=== PATIENT | female | born 1975 | race Caucasian/White ===

== ENCOUNTER 2017-01-13 15:20 | Emergency (ER) | payer OTHER ==
[~2017-01-13 15:20] MED LIST: BENADRYL25 MG PO; CEPACOL SORE T1 EAC1 PO; DEPAKOTE500 MG PO; DESYREL-DPS50 MG PO; FEOSOL325 MG PO; HYDROCODON-ACE1 EAC4 PO; KEPPRA250 MG PO; KLONOPIN0.5 MG PO; LEVAQUIN750 MG PO; MAG-OX400 MG PO; NAPROSYN500 MG PO; TESSALON PERLE100 MG PO; TYLENOL325 MG PO; XANAX DPS1 MG PO; ZANAFLEX4 M2 PO; ZOLOFT100 MG PO; [UNRECOGNIZED DRUG - OTHER] PO
--- NOTE | 2017-01-20 21:28 | ER ---
ADMIT: 01/13/2017 RM/LOC: ER [facility] MR#: [id number] [address] [facility] [address] [place], [place] [id number] EDILBERTO MUÑOZ [address] [place] [address] Emergency Room Report SEX: F AGE: 41 : 1975 DATE: 01/13/2017 ADDENDUM: See T-sheet for complete H and P. A 41-year-old female who comes in complaining that she bumped into a towel rack in her bathroom that had a vase on it that fell off, hit her in the head and the back, and she states that she has had increasing pain in her head since then and has had back pain. She states that she developed some nausea afterwards and was sitting next to her toilet throwing up, when she became lightheaded and fell sideways, hitting her head against her shower. She is in here complaining of headache and back pain now. She states she has some possible seizure history, but her description does not sound consistent with real seizures. Physical exam shows she is in no distress. Her neurologic exam is unremarkable. I do see some slight abrasions on her forehead and slight abrasion on the occiput on the right side of her head. There is nothing that needs closure and they are quite superficial. I did end up getting a CT of her head, which is unremarkable. The patient states she was in quite a bit of pain, so I gave her Toradol 30 mg p.o. and Flexeril. She will be discharged home on Flexeril. DIAGNOSES: 1. Head contusion. 2. Back contusion. 3. Nausea and vomit. Spencer Bowser MD/ mary JOB #: [id number] CC: Spencer Bowser MD, Attending Physician Thiago Marquez MD, Family Physician
== END 2017-01-13 16:52 | disposition home or self-care (01) ==
LOC: ER 15:20
DX: S00.93XA Contusion of unspecified part of head, initial encounter (principal); S30.0XXA Contusion of lower back and pelvis, initial encounter; W20.8XXA Other cause of strike by thrown, projected or falling object, initial encounter; R11.2 Nausea with vomiting, unspecified; Z88.0 Allergy status to penicillin; Z90.710 Acquired absence of both cervix and uterus; Y92.002 Bathroom of unspecified non-institutional (private) residence as the place of occurrence of the external cause

== ENCOUNTER 2017-01-14 10:43 | Emergency (ER) | payer OTHER ==
--- NOTE | 2017-01-20 21:28 | ER ---
ADMIT: 01/14/2017 RM/LOC: ER [facility] MR#: [id number] [address] [facility] [address] [place] [id number] EDILBERTO MUÑOZ [address] [place] [address] Emergency Room Report SEX: F AGE: 41 : 1975 DATE: 01/14/2017 ADDENDUM: CHIEF COMPLAINT: Headache. HISTORY OF PRESENT ILLNESS: This is a 41-year-old female, who was seen by Dr. Bowser actually yesterday. She has putting it sounds like some white towels away. There was a base on top that is about 20 pounds, it got loose, it fell onto her head. She says she has some nausea and vomiting afterwards, then she passed out on the bathroom later on that afternoon, so then she decided to come into the ER. Dr. Bowser did do a CAT scan of her head at that time that was negative for any acute findings. The reason she comes back here today is because she is a social media marketing manager, she was trying to work this morning and just was very confused, had a headache, still have some nausea and vomiting. COURSE IN THE EMERGENCY ROOM: I gave her a liter of fluids here, Zofran, Toradol, and Valium; Zofran for the nausea, Toradol for the headache, and Valium for dizziness. I told her although she does not feel much better to go home, try to rest, that she needs to be in a dark room, no sound that this definitely is a concussion. It is going to take a couple days to feel better. CLINICAL IMPRESSION: Headache secondary to concussion. DISPOSITION: Stable at discharge and will follow up as needed. WILLIAM Milton / Spencer Bowser MD / mary JOB #: [id number] CC: Spencer Bowser MD, Attending Physician UNKNOWN, Family Physician
== END 2017-01-14 14:25 | disposition home or self-care (01) ==
LOC: ER 10:43
DX: G44.309 Post-traumatic headache, unspecified, not intractable (principal); F32.9 Major depressive disorder, single episode, unspecified; Z88.0 Allergy status to penicillin; Z79.899 Other long term (current) drug therapy